=== PATIENT | male | born 1990 | race African-American/Black ===

== ENCOUNTER 2017-12-09 19:37 | Emergency (ER) | payer OTHER ==
[~2017-12-09] VITALS: Ht 172.7 cm; Wt 104.3 kg
[~2017-12-09 19:37] MED LIST: PHENERGAN 25 MG25 M1 PO; VALIUM5 MG PO; ZOFRAN ODT4 MG PO
[2017-12-09] MEDS ORDERED: THROAT SPRAY177 M1 (19:46)
[2017-12-09] MEDS ORDERED: KEFLEX500 M1 PO (20:02)
== END 2017-12-09 20:32 | disposition home or self-care (01) ==
LOC: ER 19:37
DX: J02.8 Acute pharyngitis due to other specified organisms (principal); B96.89 Other specified bacterial agents as the cause of diseases classified elsewhere; F41.9 Anxiety disorder, unspecified; Z98.890 Other specified postprocedural states; Z88.0 Allergy status to penicillin

== ENCOUNTER 2019-04-02 18:53 | Emergency (ER) | payer OTHER ==
[~2019-04-02] VITALS: Ht 182.9 cm; Wt 77.1 kg
[~2019-04-02 18:53] MED LIST changes: +KEFLEX500 M1 PO; +THROAT SPRAY177 M1
[2019-04-02] MEDS ORDERED: PENICILLIN V P500 MG PO (21:13)
[2019-04-02 21:16] VITALS: BP 126/74
== END 2019-04-02 21:17 | disposition home or self-care (01) ==
LOC: ER 18:53
DX: K04.7 Periapical abscess without sinus (principal)

== ENCOUNTER 2019-12-28 15:24 | Emergency (ER) | payer BC, OTHER ==
[~2019-12-28] VITALS: Ht 172.7 cm; Wt 118.4 kg
[~2019-12-28 15:24] MED LIST changes: +PENICILLIN V P500 MG PO
[2019-12-28 15:38] VITALS: BP 132/75
[2019-12-28] MEDS ORDERED: NORFLEX100 MG PO (16:23)
[2019-12-28] MEDS ORDERED: MOBIC7.5 MG PO (16:23)
== END 2019-12-28 16:50 | disposition home or self-care (01) ==
LOC: ER 15:24
DX: S39.012A Strain of muscle, fascia and tendon of lower back, initial encounter (principal); Z79.2 Long term (current) use of antibiotics; Z88.0 Allergy status to penicillin; X50.0XXA Overexertion from strenuous movement or load, initial encounter; Y93.89 Activity, other specified; Y92.59 Other trade areas as the place of occurrence of the external cause; Y99.8 Other external cause status

== ENCOUNTER 2020-12-28 16:40 | Emergency (ER) | payer OTHER ==
[~2020-12-28] VITALS: Ht 172.7 cm; Wt 110.2 kg
[2020-12-28 16:40] VITALS: BP 123/87
[~2020-12-28 16:40] MED LIST changes: +MOBIC7.5 MG PO; +NORFLEX100 MG PO
[2020-12-28] MEDS ORDERED: ULTRAM 50MG TAB50 MG PO (17:20)
[2020-12-28] MEDS ORDERED: ZANAFLEX4 MG PO (17:20)
== END 2020-12-28 18:00 | disposition home or self-care (01) ==
LOC: ER 16:40
DX: M54.42 Lumbago with sciatica, left side (principal); Z90.89 Acquired absence of other organs; Z79.899 Other long term (current) drug therapy; Z79.1 Long term (current) use of non-steroidal anti-inflammatories (NSAID); Z88.0 Allergy status to penicillin